=== PATIENT | female | born 1985 | race Caucasian/White ===

== ENCOUNTER 2021-12-18 17:13 | Emergency (ER) | payer OTHER ==
[~2021-12-18] VITALS: Ht 154.9 cm; Wt 122.5 kg
[2021-12-18 17:24] VITALS: BP 159/110
--- NOTE | 2021-12-18 17:33 | NUR ---
PT AMB TO BED 6.
--- NOTE | 2021-12-18 18:00 | NUR ---
36 Y/O F BIB SELF FOR BACK PAIN 07/18 WITH DRAINAGE POST BACK SURGERY ON 08/21/21. C/O YELLOWISH AND BLOOD LIKE DRAINAGE FROM THE SURGERY SITE. PT TOOK IBUPROFEN 800MG ONE HOUR AGO. [facility]: BACK SURGERY, SPINAL CORD STIMULATOER 08/21/2021
--- NOTE | 2021-12-18 18:00 | NUR ---
DR SHANNON AND ALONDRA FLYNN AT BEDSIDE.
[2021-12-18] MEDS ORDERED: MORPHINE SULFATE 10 MG/ML VIAL IVP ONE (18:05)
[2021-12-18] MEDS ORDERED: NACL 0.9% 1,000 ML IV ONE (18:05)
[2021-12-18] MEDS ORDERED: methylPREDNISolone SS 125 MG in WATER STERILE 2 ML IV ONE (18:10)
[2021-12-18] MEDS ORDERED: diphenhydrAMINE 50 MG/ML VIAL IVP ONE (18:10)
[2021-12-18] MEDS ORDERED: WATER STERILE 10 ML MC ONE (18:16)
[2021-12-18] MEDS ORDERED: methylPREDNISolone SS 125 MG/2 ML VIAL ONE (18:17)
--- NOTE | 2021-12-18 18:41 | NUR ---
LAB SUPPORT SERVICE TECH AT PT BEDSIDE.
[2021-12-18 19:01] LABS: BASOPHILS # (AUTO) 0.1 K/uL (0.00-0.22); BASOPHILS % (AUTO) 1.1 % (0.0-2.0); EOSINOPHILS # (AUTO) 0.2 K/uL (0-0.4); EOSINOPHILS % (AUTO) 1.5 % (0.0-4.0); HEMATOCRIT 40.1 % (36-48); HEMOGLOBIN 13.2 g/dL (12.0-16.0); LYMPHOCYTES # (AUTO) 3.2 K/uL (2.5-16.5); LYMPHOCYTES % (AUTO) 25.8 % (20.5-51.1); MEAN CORPUSCULAR HEMOGLOBIN 28 pg (27-31); MEAN CORPUSCULAR HGB CONC 33 g/dL (33-37); MEAN CORPUSCULAR VOLUME 85.7 fL (80-94); MONOCYTES # (AUTO) 0.8 K/uL (0.8-1.0); MONOCYTES % (AUTO) 6.1 % (1.7-9.3); NEUTROPHILS # (AUTO) 8.2 K/uL (1.8-7.7); NEUTROPHILS % (AUTO) 65.5 % (42.2-75.2); PLATELET COUNT (AUTO) 335 K/uL (140-450); RED BLOOD CELL COUNT(AUTO) 4.68 MIL/uL (4.20-5.40); RED CELL DISTRIBUTION WIDTH 14.2 % (11.6-13.7); WHITE BLOOD COUNT (AUTO) 12.5 K/uL (4.8-10.8)
--- NOTE | 2021-12-18 19:22 | NUR ---
ASSUMED CARE OF PATIENT
--- NOTE | 2021-12-18 19:35 | NUR ---
PATIENT WALKED TO RESTROOM AT THIS TIME. PER PATIENT WISHES TO WAIT FOR RENAL FUNCTION RESULTS PRIOR TO CT
[2021-12-18 19:37] LABS: ALBUMIN 3.3 g/dL (3.4-5.0); ANION GAP 11.6 (8-16); CARBON DIOXIDE 28.1 mmol/L (21-32); CREATININE 0.9 mg/dL (0.6-1.3); POTASSIUM 3.7 mmol/L (3.5-5.1); TOTAL BILIRUBIN 0.4 mg/dL (0.0-1.0)
[2021-12-18] MEDS ORDERED: methylPREDNISolone SS 125 MG/2 ML VIAL IVP ONE (19:40)
--- NOTE | 2021-12-18 19:55 | NUR ---
CT CONTACTED AT THIS TIME
[2021-12-18 19:59] LABS: APPEARANCE,URINE CLEAR (CLEAR); BILIRUBIN,URINE 3+ (NEGATIVE); BLOOD, URINE NEGATIVE (NEGATIVE); LEUKOCYTE ESTERASE ,URINE NEGATIVE (NEGATIVE); NITRITE, URINE NEGATIVE (NEGATIVE); UGLUCOSE TRACE (NEGATIVE)
--- NOTE | 2021-12-18 20:01 | NUR ---
TAKEN TO CT AT THIS TIME.
[2021-12-18 20:08] LABS: COLOR,URINE YELLOW (YELLOW)
--- NOTE | 2021-12-18 20:27 | NUR ---
PT RETURN FROM CT
[2021-12-18] MEDS ORDERED: ACET-5636 PO (23:01)
[2021-12-18] MEDS ORDERED: SULF-59 PO (23:01)
[2021-12-18] MEDS ORDERED: SULFAMETH/TRIMETH DS 800/160MG 1 TAB PO ONE (23:05)
--- NOTE | 2021-12-18 23:14 | NUR ---
PATIENT CLEARED FOR DISHCARGE AT THIS TMIE. ADVISED TO FOLLOW UP WITH PCP AND RETURN IF CONDITION WORSENS. NO OTHER COMPLAINTS OR CONCERNS AT THIS TIME FOLLOWINF DISCHARGE TEACHING. RX SENT HOME WITH PATIENT.
[2021-12-18 23:15] VITALS: BP 133/87
--- NOTE | 2021-12-22 10:53 | NUR ---
LATE ENTRY- IV NORMAL SALINE DISCONTINUED AT 2314.
== END 2021-12-18 23:14 | disposition home or self-care (01) ==
LOC: MED 17:13
DX: R53.1 Weakness (principal); R20.0 Anesthesia of skin
CPT/HCPCS: 36415; 72129; 72132; 80053; 81003; 81025; 83605; 85025; 87040; 96361; 96374; 96375; 99285; J1200; J2270; J2930; J7030; Q9967

== ENCOUNTER 2023-09-19 15:11 | Emergency (ER) | payer OTHER ==
[~2023-09-19] VITALS: Ht 154.9 cm; Wt 90.7 kg
[~2023-09-19 15:11] MED LIST: ACET-5636 PO; SULF-59 PO
[2023-09-19 15:43] VITALS: BP 123/70; PULSE 116; RESP 16; TEMP 98.2; O2SAT 98
[2023-09-19] MEDS ORDERED: LIDOCAINE MPF 1% 10 MG/ML VIAL INJ ONE (16:10)
[2023-09-19] MEDS ORDERED: SULF-59 PO (16:11)
[2023-09-19] MEDS ORDERED: BACITRACIN OINT 500 UNITS/GM PKT TP ONE (17:00)
[2023-09-19 17:17] VITALS: BP 123/70; PULSE 116; RESP 16; TEMP 98.2; O2SAT 98
== END 2023-09-19 17:18 | disposition home or self-care (01) ==
LOC: MED 15:11
DX: L60.0 Ingrowing nail (principal); L03.031 Cellulitis of right toe; Z79.899 Other long term (current) drug therapy
CPT/HCPCS: 11730; 99284; J2001

== ENCOUNTER 2024-02-13 21:10 | Emergency (ER) | payer OTHER ==
[~2024-02-13] VITALS: Ht 154.9 cm; Wt 99.8 kg
[2024-02-13 21:36] VITALS: BP 129/81; PULSE 108; RESP 20; TEMP 97.4; O2SAT 99
[2024-02-14] MEDS ORDERED: AMPICILLIN/SULBACTAM 3 GM VIAL ONE (00:09)
[2024-02-14] MEDS: DEXAMETHASONE 10 MG/ML VIAL IVP ONE (00:13)
[2024-02-14] MEDS: KETOROLAC 30 MG/ML VIAL IVP ONE (00:13)
[2024-02-14] MEDS: LIDOCAINE/EPI 1% 1:100000 20 ML VIAL INJ ONE (00:13)
[2024-02-14] MEDS: NACL 0.9% 1,000 ML IV ONE (00:14)
[2024-02-14] MEDS: BENZOCAINE 20% 57 GM CAN MC ONE (00:14)
[2024-02-14] MEDS: AMPICILLIN/SULBACTAM 3 GM in NACL 0.9% 100 ML IV ONE (00:14)
[2024-02-14] MEDS ORDERED: AMOX-1230 PO (04:46)
[2024-02-14] MEDS ORDERED: IBUP-2213 PO (04:46)
[2024-02-14 04:50] VITALS: BP 149/74; PULSE 78; RESP 18; TEMP 98; O2SAT 97
== END 2024-02-14 04:55 | disposition home or self-care (01) ==
LOC: MED 21:10
DX: J36 Peritonsillar abscess (principal); Z79.899 Other long term (current) drug therapy
CPT/HCPCS: 42700; 96361; 96365; 96375; 99284; J0295; J1100; J1885; J2001; J7030

== ENCOUNTER 2024-05-04 22:30 | Emergency (ER) | payer OTHER ==
[~2024-05-04] VITALS: Ht 154.9 cm; Wt 90.7 kg
[~2024-05-04 22:30] MED LIST changes: +AMOX-1230 PO; +IBUP-2213 PO
[2024-05-04 22:35] VITALS: BP 118/78; PULSE 102; RESP 19; TEMP 98.7; O2SAT 97
[2024-05-04 23:28] LABS: FLU A ANTIGEN negative (NEGATIVE); FLU B ANTIGEN NEGATIVE (NEGATIVE)
[2024-05-05 01:39] LABS: BASOPHILS # (AUTO) 0.1 K/uL (0.00-0.22); BASOPHILS % (AUTO) 0.8 % (0.0-2.0); EOSINOPHILS # (AUTO) 0.3 K/uL (0-0.4); HEMATOCRIT 41.1 % (36-48); HEMOGLOBIN 13.9 g/dL (12.0-16.0); LYMPHOCYTES # (AUTO) 2.6 K/uL (2.5-16.5); LYMPHOCYTES % (AUTO) 27.8 % (20.5-51.1); MEAN CORPUSCULAR HEMOGLOBIN 29 pg (27-31); MEAN CORPUSCULAR HGB CONC 34 g/dL (33-37); MEAN CORPUSCULAR VOLUME 86.6 fL (80-94); MONOCYTES # (AUTO) 1.1 K/uL (0.8-1.0); MONOCYTES % (AUTO) 12.3 % (1.7-9.3); NEUTROPHILS # (AUTO) 5.2 K/uL (1.8-7.7); NEUTROPHILS % (AUTO) 56.1 % (42.2-75.2); PLATELET COUNT (AUTO) 285 K/uL (140-450); RED BLOOD CELL COUNT(AUTO) 4.75 MIL/uL (4.20-5.40); RED CELL DISTRIBUTION WIDTH 14.1 % (11.6-13.7); WHITE BLOOD COUNT (AUTO) 9.3 K/uL (4.8-10.8)
[2024-05-05] MEDS: KETOROLAC 30 MG/ML VIAL IVP ONE (01:47)
[2024-05-05] MEDS: PHENYLEPHRINE 1% 15 ML BTL NS ONE (01:48)
[2024-05-05] MEDS: NACL 0.9% 1,000 ML IV ONE (01:48)
[2024-05-05 01:54] LABS: ANION GAP 10.7 (8-16); CALCIUM 8.7 mg/dL (8.5-10.1); CARBON DIOXIDE 27.5 mmol/L (21-32); CREATININE 0.8 mg/dL (0.6-1.3); POTASSIUM 4.2 mmol/L (3.5-5.1)
[2024-05-05 02:00] LABS: APPEARANCE,URINE CLEAR (CLEAR); BILIRUBIN,URINE NEGATIVE (NEGATIVE); BLOOD, URINE NEGATIVE (NEGATIVE); COLOR,URINE YELLOW (YELLOW); LEUKOCYTE ESTERASE ,URINE 1+ (NEGATIVE); NITRITE, URINE NEGATIVE (NEGATIVE); PROTEIN,URINE TRACE (NEGATIVE); UGLUCOSE NEGATIVE (NEGATIVE); UROBILINOGEN,URINE 0.2 EU/dL (0.2 - 1)
[2024-05-05 02:07] LABS: BACTERIA,URINE >30 (MANY) /HPF (None Seen); MUCUS,URINE 1+ /LPF (None Seen); RBC,URINE 0-5 /HPF (0-5); SQUAMOUS EPITHELIAL CELL,UR 4-10 (MOD) /LPF (0-3 (FEW))
[2024-05-05] MEDS ORDERED: NAPR-337 PO (02:39)
[2024-05-05] MEDS ORDERED: CEPH-588 PO (02:39)
[2024-05-05 03:15] VITALS: BP 111/76; PULSE 90; RESP 20; TEMP 98.3; O2SAT 99
== END 2024-05-05 03:15 | disposition home or self-care (01) ==
LOC: MED 22:30
DX: J06.9 Acute upper respiratory infection, unspecified (principal); N39.0 Urinary tract infection, site not specified; Z20.822 Contact with and (suspected) exposure to COVID-19; Z95.0 Presence of cardiac pacemaker; Z98.84 Bariatric surgery status; Z98.890 Other specified postprocedural states; Z79.1 Long term (current) use of non-steroidal anti-inflammatories (NSAID); Z79.2 Long term (current) use of antibiotics; Z79.899 Other long term (current) drug therapy
CPT/HCPCS: 36415; 71045; 80048; 81001; 81025; 85025; 87086; 87426; 87804; 96361; 96374; 99284; J1885; J7030; Q0092

== ENCOUNTER 2024-07-21 19:04 | Emergency (ER) | payer OTHER ==
[~2024-07-21] VITALS: Ht 154.9 cm; Wt 90.7 kg
[~2024-07-21 19:04] MED LIST changes: +CEPH-588 PO; +NAPR-337 PO
[2024-07-21 19:37] VITALS: BP 132/88; PULSE 96; RESP 18; TEMP 97.7; O2SAT 99
[2024-07-21] MEDS: BACITRACIN OINT 500 UNITS/GM PKT TP ONE (19:55)
[2024-07-21] MEDS: LIDOCAINE MPF 1% 10 MG/ML VIAL INJ ONE (19:55)
[2024-07-21] MEDS ORDERED: LIDOCAINE/EPI 1% 1:100000 20 ML VIAL INJ ONE (21:07)
[2024-07-21] MEDS ORDERED: BACITRACIN OINT 500 UNITS/GM PKT TP ONE (21:10)
[2024-07-21] MEDS ORDERED: LIDOCAINE MPF 1% 10 MG/ML VIAL INJ ONE (21:10)
[2024-07-21] MEDS ORDERED: IBUP-2213 PO (21:29)
[2024-07-21] MEDS ORDERED: BACI-418 TP (21:29)
[2024-07-21 21:44] VITALS: BP 132/88; PULSE 96; RESP 18; TEMP 97.7; O2SAT 99
== END 2024-07-21 21:44 | disposition home or self-care (01) ==
LOC: MED 19:04
DX: L60.0 Ingrowing nail (principal); Z95.0 Presence of cardiac pacemaker; Z98.84 Bariatric surgery status; Z79.1 Long term (current) use of non-steroidal anti-inflammatories (NSAID); Z79.2 Long term (current) use of antibiotics; Z79.899 Other long term (current) drug therapy
CPT/HCPCS: 11730; 99284; J2001